=== PATIENT | male | born 1990 | race Caucasian/White ===

== ENCOUNTER 2017-09-11 19:04 | Emergency (ER) | payer OTHER ==
[~2017-09-11] VITALS: Ht 190.5 cm; Wt 118.2 kg
[2017-09-11] MEDS ORDERED: GABA-279 PO (19:38)
[2017-09-11] MEDS ORDERED: METHOCARBAMOL 500 MG TAB PO ONE ×3 (21:30→22:45)
[2017-09-11] MEDS ORDERED: NORCO, ANEXSIA 5/325MG TABLET (HYDROcodone/ACETAMINOPHEN) PO ONE ×3 (21:30→22:45)
[2017-09-11] MEDS ORDERED: NORCOTAB PO (21:31)
[2017-09-11] MEDS ORDERED: ROBA500T PO (21:31)
[2017-09-11 21:43] VITALS: BP 146/91
== END 2017-09-11 23:23 | disposition home or self-care (01) ==
LOC: M ED 19:04
DX: S39.012A Strain of muscle, fascia and tendon of lower back, initial encounter (principal); M54.16 Radiculopathy, lumbar region; X58.XXXA Exposure to other specified factors, initial encounter; Y92.099 Unspecified place in other non-institutional residence as the place of occurrence of the external cause; Y93.9 Activity, unspecified; Y99.9 Unspecified external cause status

== ENCOUNTER → 2018-02-02 | Outpatient (CLI) | payer OTHER | LOC: M RAD 08:35 | DX: M51.26 Other intervertebral disc displacement, lumbar region (principal) | CPT/HCPCS: 78320 ==

== ENCOUNTER → 2018-03-17 | Outpatient (REF) | payer OTHER | LOC: M LAB REF 09:37 | DX: A09 Infectious gastroenteritis and colitis, unspecified (principal) ==